=== PATIENT | male | born 1940 ===

== ENCOUNTER 2020-03-30 15:00 | Inpatient (IN) | payer MEDICARE ==
[~2020-03-30 15:00] MED LIST: MICAFUNGIN 100 MG ONE; TERAZOSIN 5 MG CAP ONE
[2020-03-30] MEDS ORDERED: ATORVASTATIN 20 MG TAB ONE (20:17)
[2020-03-30] MEDS ORDERED: SENNA 8.6 MG TAB (SENOKOT) ONE (20:17)
[2020-03-30] MEDS ORDERED: DOCUSATE SODIUM 100 MG CAP ONE (20:17)
[2020-03-30] MEDS ORDERED: traZODone 25MG PER 1/2 TABLET ONE (20:17)
[2020-03-30] MEDS ORDERED: ACETAMINOPHEN 325 MG TAB ONE (20:17)
[2020-03-31] MEDS ORDERED: ENOXAPARIN 40MG/0.4ML SYRINGE (J1650 PER 10MG) ONE (08:11)
[2020-03-31] MEDS ORDERED: DOCUSATE SODIUM 100 MG CAP ONE ×3 (08:11→21:35)
[2020-03-31] MEDS ORDERED: VITAMIN D 1,000 INTERNATIONAL UNITS TABLET ONE (08:11)
[2020-03-31] MEDS ORDERED: ASPIRIN 81 MG CHEW TABLET ONE (08:11)
[2020-03-31] MEDS ORDERED: LACTOBACILLUS ACIDOPHILUS CAP (BACID) ONE ×3 (08:11→21:35)
[2020-03-31] MEDS ORDERED: PANTOPRAZOLE 40MG TAB (PROTONIX) ONE ×2 (08:11→21:35)
[2020-03-31] MEDS ORDERED: NICOTINE 21MG/24HR 1 EA TRANSDERMAL ONE (08:11)
[2020-03-31] MEDS ORDERED: FLUoxetine 10 MG CAP ONE (08:11)
[2020-03-31] MEDS ORDERED: IPRATROPIUM 0.5MG/ALBUTEROL 2.5MG INH SOL UD 3ML (DUONEB) ONE (10:00)
[2020-03-31] MEDS ORDERED: MICAFUNGIN 100 MG ONE (13:00)
[2020-03-31] MEDS ORDERED: ERTAPENEM 1GM VIAL(INVanz) (J1335 PER 500MG) ONE (13:00)
[2020-03-31] MEDS ORDERED: SENNA 8.6 MG TAB (SENOKOT) ONE (21:35)
[2020-03-31] MEDS ORDERED: ATORVASTATIN 20 MG TAB ONE (21:35)
[2020-03-31] MEDS ORDERED: APIXABAN 5 MG TAB (ELIQUIS) ONE (21:35)
[2020-04-01] MEDS ORDERED: PANTOPRAZOLE 40MG TAB (PROTONIX) ONE ×2 (08:29→21:56)
[2020-04-01] MEDS ORDERED: LACTOBACILLUS ACIDOPHILUS CAP (BACID) ONE ×3 (08:29→21:56)
[2020-04-01] MEDS ORDERED: FLUoxetine 10 MG CAP ONE (08:29)
[2020-04-01] MEDS ORDERED: VITAMIN D 1,000 INTERNATIONAL UNITS TABLET ONE (08:29)
[2020-04-01] MEDS ORDERED: DOCUSATE SODIUM 100 MG CAP ONE ×3 (08:29→21:56)
[2020-04-01] MEDS ORDERED: APIXABAN 5 MG TAB (ELIQUIS) ONE ×2 (08:29→21:56)
[2020-04-01] MEDS ORDERED: ASPIRIN 81 MG CHEW TABLET ONE (08:29)
[2020-04-01] MEDS ORDERED: IPRATROPIUM 0.5MG/ALBUTEROL 2.5MG INH SOL UD 3ML (DUONEB) ONE (10:00)
[2020-04-01] MEDS ORDERED: ERTAPENEM 1GM VIAL(INVanz) (J1335 PER 500MG) ONE (13:00)
[2020-04-01] MEDS ORDERED: MICAFUNGIN 100 MG ONE (13:00)
[2020-04-01] MEDS ORDERED: SENNA 8.6 MG TAB (SENOKOT) ONE (21:56)
[2020-04-01] MEDS ORDERED: ATORVASTATIN 20 MG TAB ONE (21:56)
[2020-04-02] MEDS ORDERED: APIXABAN 5 MG TAB (ELIQUIS) ONE ×2 (09:12→20:27)
[2020-04-02] MEDS ORDERED: VITAMIN D 1,000 INTERNATIONAL UNITS TABLET ONE (09:12)
[2020-04-02] MEDS ORDERED: FLUoxetine 10 MG CAP ONE (09:12)
[2020-04-02] MEDS ORDERED: ASPIRIN 81 MG ENTERIC TAB ONE (09:12)
[2020-04-02] MEDS ORDERED: LACTOBACILLUS ACIDOPHILUS CAP (BACID) ONE ×3 (09:12→20:27)
[2020-04-02] MEDS ORDERED: DOCUSATE SODIUM 100 MG CAP ONE ×3 (09:12→20:27)
[2020-04-02] MEDS ORDERED: PANTOPRAZOLE 40MG TAB (PROTONIX) ONE ×2 (09:12→20:27)
[2020-04-02] MEDS ORDERED: IPRATROPIUM 0.5MG/ALBUTEROL 2.5MG INH SOL UD 3ML (DUONEB) ONE (10:00)
[2020-04-02] MEDS ORDERED: ERTAPENEM 1GM VIAL(INVanz) (J1335 PER 500MG) ONE (13:00)
[2020-04-02] MEDS ORDERED: MICAFUNGIN 100 MG ONE (13:00)
[2020-04-02] MEDS ORDERED: ACETAMINOPHEN 325 MG TAB ONE (20:27)
[2020-04-02] MEDS ORDERED: ATORVASTATIN 20 MG TAB ONE (20:27)
[2020-04-02] MEDS ORDERED: SENNA 8.6 MG TAB (SENOKOT) ONE (20:27)
[2020-04-02] MEDS ORDERED: traZODone 25MG PER 1/2 TABLET ONE (20:27)
[2020-04-03] MEDS ORDERED: APIXABAN 5 MG TAB (ELIQUIS) ONE ×2 (09:43→20:20)
[2020-04-03] MEDS ORDERED: FLUoxetine 10 MG CAP ONE (09:43)
[2020-04-03] MEDS ORDERED: ASPIRIN 81 MG CHEW TABLET ONE (09:43)
[2020-04-03] MEDS ORDERED: DOCUSATE SODIUM 100 MG CAP ONE ×3 (09:43→20:20)
[2020-04-03] MEDS ORDERED: PANTOPRAZOLE 40MG TAB (PROTONIX) ONE ×2 (09:43→20:20)
[2020-04-03] MEDS ORDERED: VITAMIN D 1,000 INTERNATIONAL UNITS TABLET ONE (09:43)
[2020-04-03] MEDS ORDERED: LACTOBACILLUS ACIDOPHILUS CAP (BACID) ONE ×3 (09:43→20:20)
[2020-04-03] MEDS ORDERED: IPRATROPIUM 0.5MG/ALBUTEROL 2.5MG INH SOL UD 3ML (DUONEB) ONE (10:00)
[2020-04-03] MEDS ORDERED: traZODone 25MG PER 1/2 TABLET ONE (20:20)
[2020-04-03] MEDS ORDERED: ACETAMINOPHEN TAB 650MG DOSE (2X325MG) ONE (20:20)
[2020-04-03] MEDS ORDERED: ATORVASTATIN 20 MG TAB ONE (20:20)
[2020-04-03] MEDS ORDERED: SENNA 8.6 MG TAB (SENOKOT) ONE (20:20)
[2020-04-04] MEDS ORDERED: MICAFUNGIN 100 MG ONE
[2020-04-04] MEDS ORDERED: LACTOBACILLUS ACIDOPHILUS CAP (BACID) ONE ×3 (06:28→20:41)
[2020-04-04] MEDS ORDERED: ASPIRIN 81 MG ENTERIC TAB ONE (06:28)
[2020-04-04] MEDS ORDERED: VITAMIN D 1,000 INTERNATIONAL UNITS TABLET ONE (06:28)
[2020-04-04] MEDS ORDERED: FLUoxetine 10 MG CAP ONE (06:28)
[2020-04-04] MEDS ORDERED: DOCUSATE SODIUM 100 MG CAP ONE ×3 (06:28→20:41)
[2020-04-04] MEDS ORDERED: PANTOPRAZOLE 40MG TAB (PROTONIX) ONE ×2 (06:28→20:41)
[2020-04-04] MEDS ORDERED: IPRATROPIUM 0.5MG/ALBUTEROL 2.5MG INH SOL UD 3ML (DUONEB) ONE (10:00)
[2020-04-04] MEDS ORDERED: ERTAPENEM 1GM VIAL(INVanz) (J1335 PER 500MG) ONE (12:00)
[2020-04-04] MEDS ORDERED: SENNA 8.6 MG TAB (SENOKOT) ONE (20:41)
[2020-04-04] MEDS ORDERED: ATORVASTATIN 20 MG TAB ONE (20:41)
[2020-04-04] MEDS ORDERED: APIXABAN 5 MG TAB (ELIQUIS) ONE (20:41)
[2020-04-04] MEDS ORDERED: traZODone 25MG PER 1/2 TABLET ONE (20:41)
[2020-04-05] MEDS ORDERED: MICAFUNGIN 100 MG ONE
[2020-04-05] MEDS ORDERED: DOCUSATE SODIUM 100 MG CAP ONE ×3 (08:06→20:49)
[2020-04-05] MEDS ORDERED: ASPIRIN 81 MG ENTERIC TAB ONE (08:06)
[2020-04-05] MEDS ORDERED: LACTOBACILLUS ACIDOPHILUS CAP (BACID) ONE ×3 (08:06→20:49)
[2020-04-05] MEDS ORDERED: APIXABAN 5 MG TAB (ELIQUIS) ONE ×2 (08:06→20:49)
[2020-04-05] MEDS ORDERED: FLUoxetine 10 MG CAP ONE (08:06)
[2020-04-05] MEDS ORDERED: VITAMIN D 1,000 INTERNATIONAL UNITS TABLET ONE (08:06)
[2020-04-05] MEDS ORDERED: PANTOPRAZOLE 40MG TAB (PROTONIX) ONE ×2 (08:06→20:49)
[2020-04-05] MEDS ORDERED: IPRATROPIUM 0.5MG/ALBUTEROL 2.5MG INH SOL UD 3ML (DUONEB) ONE (10:00)
[2020-04-05] MEDS ORDERED: ERTAPENEM 1GM VIAL(INVanz) (J1335 PER 500MG) ONE (12:00)
[2020-04-05] MEDS ORDERED: TERAZOSIN 5 MG CAP ONE (13:00)
[2020-04-05] MEDS ORDERED: SENNA 8.6 MG TAB (SENOKOT) ONE (20:49)
[2020-04-05] MEDS ORDERED: ATORVASTATIN 20 MG TAB ONE (20:49)
[2020-04-06] MEDS ORDERED: ERTAPENEM 1GM VIAL(INVanz) (J1335 PER 500MG) ONE
[2020-04-06] MEDS ORDERED: MICAFUNGIN 100 MG ONE
[2020-04-06] MEDS ORDERED: ASPIRIN 81 MG CHEW TABLET ONE (08:06)
[2020-04-06] MEDS ORDERED: FLUoxetine 10 MG CAP ONE (08:06)
[2020-04-06] MEDS ORDERED: LACTOBACILLUS ACIDOPHILUS CAP (BACID) ONE (08:06)
[2020-04-06] MEDS ORDERED: DOCUSATE SODIUM 100 MG CAP ONE ×2 (08:06→17:13)
[2020-04-06] MEDS ORDERED: VITAMIN D 1,000 INTERNATIONAL UNITS TABLET ONE (08:06)
[2020-04-06] MEDS ORDERED: APIXABAN 5 MG TAB (ELIQUIS) ONE (08:06)
[2020-04-06] MEDS ORDERED: PANTOPRAZOLE 40MG TAB (PROTONIX) ONE (08:06)
[2020-04-06] MEDS ORDERED: ONDANSETRON 4 MG ORAL DISINTEGRATING TAB PO PRN (09:30)
[2020-04-06] MEDS ORDERED: MIRALAX *UNIT DOSE* 17GM PACKET PO PRN (09:30)
[2020-04-06] MEDS ORDERED: GABA-843 PO (09:35)
[2020-04-06] MEDS ORDERED: MELA3TAB49 PO (09:35)
[2020-04-06] MEDS ORDERED: ATOR40TA75 PO (09:35)
[2020-04-06] MEDS ORDERED: PROBCAP14 PO (09:35)
[2020-04-06] MEDS ORDERED: D31000TA2 PO (09:35)
[2020-04-06] MEDS ORDERED: TERA5CAP3 PO (09:35)
[2020-04-06] MEDS ORDERED: PANT-23 PO (09:35)
[2020-04-06] MEDS ORDERED: ASPI81TA26 PO (09:35)
[2020-04-06] MEDS ORDERED: ACET1TAB55 PO (09:35)
[2020-04-06] MEDS ORDERED: IPRATROPIUM 0.5MG/ALBUTEROL 2.5MG INH SOL UD 3ML (DUONEB) ONE (10:00)
[2020-04-06] MEDS: IPRATROPIUM 0.5MG/ALBUTEROL 2.5MG INH SOL UD 3ML (DUONEB) INH SCH (16:00)
[2020-04-06] MEDS: SODIUM CHLORIDE 0.9% INJ 10 ML SYR IV SCH (18:00)
[2020-04-06 20:00] VITALS: BP 134/64
[2020-04-06] MEDS: ATORVASTATIN 20 MG TAB PO SCH (20:58)
[2020-04-06] MEDS: DOCUSATE SODIUM 100 MG CAP PO SCH (20:58)
[2020-04-06] MEDS: PANTOPRAZOLE 40MG TAB (PROTONIX) PO SCH (20:58)
[2020-04-06] MEDS: SENNA 8.6 MG TAB (SENOKOT) PO SCH (20:58)
[2020-04-06] MEDS: APIXABAN 5 MG TAB (ELIQUIS) PO SCH (20:58)
[2020-04-06] MEDS: TERAZOSIN 5 MG CAP PO SCH (20:58)
[2020-04-06] MEDS: LACTOBACILLUS ACIDOPHILUS CAP (BACID) PO SCH (20:58)
[2020-04-06] MEDS: REMEDY PHYTOPLEX Z-GUARD PASTE 113GM TUBE (FROM STOREROOM PRODUCT) TOP SCH (20:58)
[2020-04-07] MEDS: MICAFUNGIN SODIUM 100 MG in D5W MINI-BAG PLUS 100 ML IV SCH (00:27)
[2020-04-07] MEDS: SODIUM CHLORIDE 0.9% INJ 10 ML SYR IV SCH ×2 (01:53→16:28)
[2020-04-07 06:00] VITALS: BP 153/74
[2020-04-07] MEDS: APIXABAN 5 MG TAB (ELIQUIS) PO SCH ×2 (07:41→21:20)
[2020-04-07] MEDS: FLUoxetine 10 MG CAP PO SCH (07:41)
[2020-04-07] MEDS: VITAMIN D 1,000 INTERNATIONAL UNITS TABLET PO SCH (07:41)
[2020-04-07] MEDS: PANTOPRAZOLE 40MG TAB (PROTONIX) PO SCH ×2 (07:41→21:20)
[2020-04-07] MEDS: ASPIRIN 81 MG CHEW TABLET PO SCH (07:41)
[2020-04-07] MEDS: LACTOBACILLUS ACIDOPHILUS CAP (BACID) PO SCH ×3 (07:41→21:20)
[2020-04-07] MEDS: DOCUSATE SODIUM 100 MG CAP PO SCH ×3 (07:42→21:00)
[2020-04-07] MEDS: REMEDY PHYTOPLEX Z-GUARD PASTE 113GM TUBE (FROM STOREROOM PRODUCT) TOP SCH ×3 (07:42→21:21)
[2020-04-07] MEDS: IPRATROPIUM 0.5MG/ALBUTEROL 2.5MG INH SOL UD 3ML (DUONEB) INH SCH ×4 (08:00→19:31)
[2020-04-07] MEDS: ERTAPENEM SODIUM 1 GM in NS MINI-BAG PLUS 50 ML IV SCH (11:05)
[2020-04-07] MEDS: SODIUM CHLORIDE 0.9% INJ 10 ML SYR IV PRN (11:05)
[2020-04-07] MEDS ORDERED: ERTAPENEM 1GM VIAL(INVanz) (J1335 PER 500MG) ONE (12:00)
[2020-04-07] MEDS ORDERED: MICAFUNGIN 100 MG ONE (12:00)
[2020-04-07 14:00] VITALS: BP 138/64
[2020-04-07 20:00] VITALS: BP 136/60
[2020-04-07] MEDS: SENNA 8.6 MG TAB (SENOKOT) PO SCH (21:00)
[2020-04-07] MEDS: ATORVASTATIN 20 MG TAB PO SCH (21:19)
[2020-04-07] MEDS: TERAZOSIN 5 MG CAP PO SCH (21:21)
[2020-04-08] MEDS: MICAFUNGIN SODIUM 100 MG in D5W MINI-BAG PLUS 100 ML IV SCH ×2 (00:54→23:24)
[2020-04-08] MEDS: SODIUM CHLORIDE 0.9% INJ 10 ML SYR IV SCH ×2 (02:23→17:14)
[2020-04-08] MEDS: SODIUM CHLORIDE 0.9% INJ 10 ML SYR IV PRN (02:24)
[2020-04-08 06:00] VITALS: BP 160/69
[2020-04-08] MEDS: IPRATROPIUM 0.5MG/ALBUTEROL 2.5MG INH SOL UD 3ML (DUONEB) INH SCH ×3 (08:26→22:43)
[2020-04-08] MEDS: DOCUSATE SODIUM 100 MG CAP PO SCH ×2 (09:00→16:00)
[2020-04-08 10:14] VITALS: BP 160/69
[2020-04-08] MEDS: APIXABAN 5 MG TAB (ELIQUIS) PO SCH ×2 (10:22→21:04)
[2020-04-08] MEDS: LACTOBACILLUS ACIDOPHILUS CAP (BACID) PO SCH ×3 (10:22→21:04)
[2020-04-08] MEDS: FLUoxetine 10 MG CAP PO SCH (10:22)
[2020-04-08] MEDS: PANTOPRAZOLE 40MG TAB (PROTONIX) PO SCH ×2 (10:22→21:04)
[2020-04-08] MEDS: ASPIRIN 81 MG CHEW TABLET PO SCH (10:23)
[2020-04-08] MEDS: VITAMIN D 1,000 INTERNATIONAL UNITS TABLET PO SCH (10:23)
[2020-04-08] MEDS: REMEDY PHYTOPLEX Z-GUARD PASTE 113GM TUBE (FROM STOREROOM PRODUCT) TOP SCH ×3 (10:23→21:06)
[2020-04-08] MEDS: ERTAPENEM SODIUM 1 GM in NS MINI-BAG PLUS 50 ML IV SCH (12:30)
[2020-04-08] MEDS ORDERED: ELIQ5TAB PO (12:38)
[2020-04-08] MEDS ORDERED: ATOR40TA75 PO (12:38)
[2020-04-08] MEDS ORDERED: TERA5CAP3 PO (12:39)
[2020-04-08] MEDS ORDERED: ASPI81CH8 PO (12:39)
[2020-04-08] MEDS ORDERED: PANT40TA29 PO (12:39)
[2020-04-08] MEDS ORDERED: RISATAB3 PO (12:39)
[2020-04-08] MEDS ORDERED: FLUO10CA16 PO (12:39)
[2020-04-08 13:02] LABS: HEMOGLOBIN 9.7 g/dl (13.5-17.5); MEAN CORPUSCULAR HEMOGLOBIN 31.2 pg (27.0-33.0); MEAN CORPUSCULAR HGB CONC 32.3 g/dl (32.0-36.5); MEAN CORPUSCULAR VOLUME 96.5 fl (80.0-96.0); PLATELET COUNT, AUTOMATED 168 10^3/uL (150-450); RED BLOOD COUNT 3.11 10^6/uL (4.30-6.10); WHITE BLOOD COUNT 4.3 10^3/uL (4.0-10.0)
[2020-04-08 13:03] LABS: ERYTHROCYTE SEDIMENTATION RATE 15 mm/hr (0-20)
[2020-04-08 13:13] LABS: BASO % 0.4 % (0.0-1.0); EOS # 0.1 10^3/uL (0.0-0.5); EOS % 1.5 % (0.0-3.0); HEMATOCRIT 34.2 % (42.0-52.0); LYMPH # 0.9 10^3/uL (1.5-5.0); MEAN CORPUSCULAR HEMOGLOBIN 31.2 pg (27.0-33.0); MEAN CORPUSCULAR HGB CONC 32.2 g/dl (32.0-36.5); MEAN CORPUSCULAR VOLUME 96.9 fl (80.0-96.0); MONO # 0.6 10^3/uL (0.0-0.8); MONO % 8.7 % (0.0-5.0); NEUTROPHILS # 5.1 10^3/uL (1.5-8.5); NEUTROPHILS % 76.1 % (36.0-66.0); PLATELET COUNT, AUTOMATED 170 10^3/uL (150-450); RED BLOOD COUNT 3.53 10^6/uL (4.30-6.10); WHITE BLOOD COUNT 6.7 10^3/uL (4.0-10.0)
[2020-04-08 13:37] LABS: BLOOD UREA NITROGEN 12 MG/DL (7-18); CALCIUM LEVEL 8.3 MG/DL (8.8-10.2); CARBON DIOXIDE LEVEL 29 MEQ/L (21-32); CHLORIDE LEVEL 108 MEQ/L (98-107); CREATININE FOR GFR 0.79 MG/DL (0.70-1.30); GLOMERULAR FILTRATION RATE > 60.0 (>42); GLUCOSE, FASTING 111 MG/DL (70-100); POTASSIUM SERUM 3.5 MEQ/L (3.5-5.1); SODIUM LEVEL 140 MEQ/L (136-145)
[2020-04-08 14:00] VITALS: BP 117/58
[2020-04-08 20:00] VITALS: BP 122/58
[2020-04-08] MEDS: SENNA 8.6 MG TAB (SENOKOT) PO SCH (21:00)
[2020-04-08] MEDS: TERAZOSIN 5 MG CAP PO SCH (21:06)
[2020-04-08] MEDS: ATORVASTATIN 20 MG TAB PO SCH (21:06)
[2020-04-09] MEDS: SODIUM CHLORIDE 0.9% INJ 10 ML SYR IV SCH ×2 (00:50→17:05)
[2020-04-09] MEDS: SODIUM CHLORIDE 0.9% INJ 10 ML SYR IV PRN (00:51)
[2020-04-09 05:35] VITALS: BP 154/70
[2020-04-09] MEDS: IPRATROPIUM 0.5MG/ALBUTEROL 2.5MG INH SOL UD 3ML (DUONEB) INH SCH ×2 (07:41→18:13)
[2020-04-09] MEDS: APIXABAN 5 MG TAB (ELIQUIS) PO SCH ×2 (08:31→20:43)
[2020-04-09] MEDS: VITAMIN D 1,000 INTERNATIONAL UNITS TABLET PO SCH (08:31)
[2020-04-09] MEDS: FLUoxetine 10 MG CAP PO SCH (08:31)
[2020-04-09] MEDS: ASPIRIN 81 MG CHEW TABLET PO SCH (08:31)
[2020-04-09] MEDS: LACTOBACILLUS ACIDOPHILUS CAP (BACID) PO SCH ×3 (08:31→20:43)
[2020-04-09] MEDS: PANTOPRAZOLE 40MG TAB (PROTONIX) PO SCH ×2 (08:31→20:44)
[2020-04-09] MEDS: REMEDY PHYTOPLEX Z-GUARD PASTE 113GM TUBE (FROM STOREROOM PRODUCT) TOP SCH ×3 (08:32→20:44)
[2020-04-09] MEDS: ERTAPENEM SODIUM 1 GM in NS MINI-BAG PLUS 50 ML IV SCH ×2 (12:00→14:01)
[2020-04-09 14:00] VITALS: BP 152/89
[2020-04-09 20:00] VITALS: BP 112/53
[2020-04-09] MEDS: TERAZOSIN 5 MG CAP PO SCH (20:43)
[2020-04-09] MEDS: SENNA 8.6 MG TAB (SENOKOT) PO SCH (20:44)
[2020-04-09] MEDS: ATORVASTATIN 20 MG TAB PO SCH (20:44)
[2020-04-09] MEDS: MICAFUNGIN SODIUM 100 MG in D5W MINI-BAG PLUS 100 ML IV SCH (23:36)
[2020-04-10 05:40] VITALS: BP 144/68
[2020-04-10] MEDS: SODIUM CHLORIDE 0.9% INJ 10 ML SYR IV SCH ×2 (05:45→17:19)
[2020-04-10] MEDS: IPRATROPIUM 0.5MG/ALBUTEROL 2.5MG INH SOL UD 3ML (DUONEB) INH SCH ×3 (06:20→17:54)
[2020-04-10] MEDS: VITAMIN D 1,000 INTERNATIONAL UNITS TABLET PO SCH (08:43)
[2020-04-10] MEDS: PANTOPRAZOLE 40MG TAB (PROTONIX) PO SCH ×2 (08:43→20:53)
[2020-04-10] MEDS: FLUoxetine 10 MG CAP PO SCH (08:43)
[2020-04-10] MEDS: ASPIRIN 81 MG CHEW TABLET PO SCH (08:44)
[2020-04-10] MEDS: LACTOBACILLUS ACIDOPHILUS CAP (BACID) PO SCH ×3 (08:44→20:53)
[2020-04-10] MEDS: REMEDY PHYTOPLEX Z-GUARD PASTE 113GM TUBE (FROM STOREROOM PRODUCT) TOP SCH ×3 (08:44→20:54)
[2020-04-10] MEDS: APIXABAN 5 MG TAB (ELIQUIS) PO SCH ×2 (08:44→20:53)
[2020-04-10] MEDS: ERTAPENEM SODIUM 1 GM in NS MINI-BAG PLUS 50 ML IV SCH (12:06)
[2020-04-10 14:00] VITALS: BP 138/65
[2020-04-10 20:20] VITALS: BP 141/64
[2020-04-10 20:52] VITALS: BP 141/64
[2020-04-10] MEDS: TERAZOSIN 5 MG CAP PO SCH (20:52)
[2020-04-10] MEDS: ATORVASTATIN 20 MG TAB PO SCH (20:53)
[2020-04-10] MEDS: SENNA 8.6 MG TAB (SENOKOT) PO SCH (20:57)
[2020-04-11] MEDS: SODIUM CHLORIDE 0.9% INJ 10 ML SYR IV SCH ×2 (00:22→17:12)
[2020-04-11] MEDS: MICAFUNGIN SODIUM 100 MG in D5W MINI-BAG PLUS 100 ML IV SCH (00:23)
[2020-04-11 05:53] VITALS: BP 145/58
[2020-04-11] MEDS: IPRATROPIUM 0.5MG/ALBUTEROL 2.5MG INH SOL UD 3ML (DUONEB) INH SCH ×3 (07:38→18:06)
[2020-04-11] MEDS: ASPIRIN 81 MG CHEW TABLET PO SCH (08:31)
[2020-04-11] MEDS: LACTOBACILLUS ACIDOPHILUS CAP (BACID) PO SCH ×3 (08:31→19:58)
[2020-04-11] MEDS: FLUoxetine 10 MG CAP PO SCH (08:31)
[2020-04-11] MEDS: VITAMIN D 1,000 INTERNATIONAL UNITS TABLET PO SCH (08:31)
[2020-04-11] MEDS: PANTOPRAZOLE 40MG TAB (PROTONIX) PO SCH ×2 (08:31→19:59)
[2020-04-11] MEDS: APIXABAN 5 MG TAB (ELIQUIS) PO SCH ×2 (08:31→19:59)
[2020-04-11] MEDS: REMEDY PHYTOPLEX Z-GUARD PASTE 113GM TUBE (FROM STOREROOM PRODUCT) TOP SCH ×3 (08:32→20:00)
[2020-04-11] MEDS: ERTAPENEM SODIUM 1 GM in NS MINI-BAG PLUS 50 ML IV SCH (12:07)
[2020-04-11 14:00] VITALS: BP 129/64
[2020-04-11] MEDS: traZODone 25MG PER 1/2 TABLET PO PRN (19:58)
[2020-04-11] MEDS: ACETAMINOPHEN TAB 650MG DOSE (2X325MG) PO PRN (19:58)
[2020-04-11] MEDS: TERAZOSIN 5 MG CAP PO SCH (19:59)
[2020-04-11] MEDS: ATORVASTATIN 20 MG TAB PO SCH (19:59)
[2020-04-11 20:00] VITALS: BP 117/53
[2020-04-11] MEDS: SENNA 8.6 MG TAB (SENOKOT) PO SCH (20:00)
[2020-04-12] MEDS: SODIUM CHLORIDE 0.9% INJ 10 ML SYR IV SCH ×3 (00:12→23:46)
[2020-04-12] MEDS: MICAFUNGIN SODIUM 100 MG in D5W MINI-BAG PLUS 100 ML IV SCH ×2 (00:13→23:44)
[2020-04-12 06:00] VITALS: BP 148/72
[2020-04-12] MEDS: IPRATROPIUM 0.5MG/ALBUTEROL 2.5MG INH SOL UD 3ML (DUONEB) INH SCH ×3 (07:15→18:20)
[2020-04-12] MEDS: VITAMIN D 1,000 INTERNATIONAL UNITS TABLET PO SCH (08:58)
[2020-04-12] MEDS: REMEDY PHYTOPLEX Z-GUARD PASTE 113GM TUBE (FROM STOREROOM PRODUCT) TOP SCH ×3 (08:58→19:56)
[2020-04-12] MEDS: PANTOPRAZOLE 40MG TAB (PROTONIX) PO SCH ×2 (08:58→19:55)
[2020-04-12] MEDS: ASPIRIN 81 MG CHEW TABLET PO SCH (08:58)
[2020-04-12] MEDS: LACTOBACILLUS ACIDOPHILUS CAP (BACID) PO SCH ×3 (08:58→19:55)
[2020-04-12] MEDS: APIXABAN 5 MG TAB (ELIQUIS) PO SCH ×2 (08:58→19:55)
[2020-04-12] MEDS: FLUoxetine 10 MG CAP PO SCH (08:58)
[2020-04-12] MEDS: ERTAPENEM SODIUM 1 GM in NS MINI-BAG PLUS 50 ML IV SCH (11:51)
[2020-04-12] MEDS: SODIUM CHLORIDE 0.9% INJ 10 ML SYR IV PRN (11:52)
[2020-04-12 14:00] VITALS: BP 120/65
[2020-04-12] MEDS: ACETAMINOPHEN TAB 650MG DOSE (2X325MG) PO PRN (19:54)
[2020-04-12] MEDS: SENNA 8.6 MG TAB (SENOKOT) PO SCH (19:55)
[2020-04-12] MEDS: ATORVASTATIN 20 MG TAB PO SCH (19:55)
[2020-04-12] MEDS: TERAZOSIN 5 MG CAP PO SCH (19:55)
[2020-04-12] MEDS: traZODone 25MG PER 1/2 TABLET PO PRN (19:55)
[2020-04-12 20:00] VITALS: BP 140/65
--- NOTE | 2020-04-12 21:34 | IPNPDOC ---
PM&R Progress Note DATE OF SERVICE: Apr 07, 2020 Supervisor/Port Director Progress Note SUBJECTIVE: Patient reporting he is feeling well overall and looking forward to going home on Sunday. ROS- denies fevers, chills, chest pain, nausea/vomiting, diarrhea/constipation, dysuria, difficulty breathing MEDICATIONS: Reviewed, see below. OBJECTIVE: VITAL SIGNS: Please see below. PHYSICAL EXAMINATION: GENERAL:well developed, sitting up in bed, no acute distress HEENT: Normocephalic, atraumatic PERRL, EOMI CARDIOVASCULAR: [S1, S2, rrr, no murmur LUNGS: CTA ABDOMEN: Soft, nontender, nondistended. Normoactive bowel sounds throughout MUSCULOSKELETAL: MMT: 5/5 bilat UE, +right foot drop (otherwise 5/5 bilat LE) NEUROLOGICAL: Alert and oriented times three. 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 Rehab- c/u PT/OT, patient nearing Mod-I however inconsistently with useof AFO and walker, he will at times forget he is hooked up to the wound vac 2. 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 cardiac- c/u daily weights in detting of chronic CHF 4. ID_ c/u Micafungin and Ertepenem per ID recs- afebrile, no leukocytosis 5. Skin- c/u wound vac changes and sacral skin care 6. DVT-patient started on Eliquis for recent finding of Left sided DVT 7. GI ppx- protonix 8. Dispo- 04-09-20 to home with assistance from family Allergies Coded Allergies: No Known Allergies (Unverified , 04/06/20) Vital Signs Vital Signs Date Time Temp Pulse Resp B/P (MAP) Pulse Ox O2 Delivery O2 Flow Rate FiO2 04/12/20 20:00 98.5 62 18 140/65 (90) 97 Room Air Current Medications Current Medications Current Medications Medications (Trade) Dose Ordered Sig/Roddy Route PRN Reason Start Time Stop Time Status Last Admin Dose Admin Acetaminophen (Tylenol Tab) 650 mg Q6HP PRN PO PAIN/FEVER 04/06/20 09:30 04/12/20 19:54 Albuterol/ Ipratropium (Duoneb (Ipr 0.5mg/Alb 2.5mg)) 3 ml RQ8H INH 04/06/20 16:00 04/12/20 18:20 Apixaban (Eliquis) 5 mg BID PO 04/06/20 21:00 04/12/20 19:55 Aspirin (Aspirin Chewable) 81 mg DAILY PO 04/07/20 09:00 04/12/20 08:58 Atorvastatin Calcium (Lipitor) 40 mg QHS PO 04/06/20 21:00 04/12/20 19:55 Docusate Sodium (Colace) 100 mg TID PO 04/06/20 21:00 04/08/20 17:23 DC 04/06/20 20:58 Ertapenem 1 gm/ Sodium Chloride 50 ml @ 100 mls/hr Q24H IV 04/07/20 12:00 04/12/20 11:51 Fluoxetine HCl (PROzac) 10 mg DAILY PO 04/07/20 09:00 04/12/20 08:58 Heparin Sodium (Heparin (Flush)) 200 units ASDIRECTED PRN IV SEE LABEL COMMENTS 04/06/20 09:30 04/12/20 11:52 Heparin Sodium (Heparin (Flush)) 200 units PICC IV 04/06/20 18:00 04/12/20 18:05 Home Med (Med Rec Complete!) ASDIRECTED XX 04/06/20 09:45 04/06/20 09:37 DC Lactobacillus Acidophilus (Bacid) 1 ea TID PO 04/06/20 21:00 04/12/20 19:55 Micafungin Sodium 100 mg/Dextrose 100 ml @ 100 mls/hr Q24H IV 04/07/20 00:00 04/12/20 00:13 Miscellaneous (Unresolved Clarification Entry) SEE LABEL COMMENTS DAILY XX 04/11/20 09:00 04/11/20 10:02 DC Ondansetron HCl (Zofran Odt) 4 mg Q6HP PRN PO NAUSEA 04/06/20 09:30 Pantoprazole Sodium (Protonix) 40 mg BID PO 04/06/20 21:00 04/12/20 19:55 Polyethylene Glycol (Miralax) 1 pkt DAILYPRN PRN PO CONSTIPATION 04/06/20 09:30 Senna (Senokot) 1 tab QHS PO 04/06/20 21:00 04/12/20 19:55 Sodium Chloride (Saline Lock Flush) 10 ml ASDIRECTED PRN IV SEE LABEL COMMENTS 04/06/20 09:30 04/12/20 11:52 Sodium Chloride (Saline Lock Flush) 10 ml PICC IV 04/06/20 18:00 04/12/20 18:04 Terazosin HCl (Hytrin) 5 mg QHS PO 04/06/20 21:00 04/12/20 19:55 Trazodone HCl (Desyrel) 25 mg QHSP PRN PO INSOMNIA 04/06/20 09:30 04/12/20 19:55 Vitamin D (Vitamin D) 1,000 units DAILY PO 04/07/20 09:00 04/12/20 08:58 RICARDO BAIG MD Apr 12, 2020 21:34
[2020-04-13 06:00] VITALS: BP 141/65
[2020-04-13 07:03] LABS: BASO % 0.4 % (0.0-1.0); EOS # 0.3 10^3/uL (0.0-0.5); EOS % 6.5 % (0.0-3.0); HEMATOCRIT 32.9 % (42.0-52.0); HEMOGLOBIN 10.7 g/dl (13.5-17.5); LYMPH % 21.3 % (24.0-44.0); MEAN CORPUSCULAR HEMOGLOBIN 31.6 pg (27.0-33.0); MEAN CORPUSCULAR HGB CONC 32.5 g/dl (32.0-36.5); MEAN CORPUSCULAR VOLUME 97.1 fl (80.0-96.0); MONO # 0.5 10^3/uL (0.0-0.8); MONO % 10.3 % (0.0-5.0); NEUTROPHILS # 2.8 10^3/uL (1.5-8.5); NEUTROPHILS % 61.1 % (36.0-66.0); PLATELET COUNT, AUTOMATED 145 10^3/uL (150-450); RED BLOOD COUNT 3.39 10^6/uL (4.30-6.10); WHITE BLOOD COUNT 4.6 10^3/uL (4.0-10.0)
[2020-04-13] MEDS: IPRATROPIUM 0.5MG/ALBUTEROL 2.5MG INH SOL UD 3ML (DUONEB) INH SCH ×2 (07:12→13:11)
[2020-04-13 08:16] LABS: BLOOD UREA NITROGEN 12 MG/DL (7-18); CALCIUM LEVEL 8.5 MG/DL (8.8-10.2); CARBON DIOXIDE LEVEL 29 MEQ/L (21-32); CHLORIDE LEVEL 108 MEQ/L (98-107); CREATININE FOR GFR 0.78 MG/DL (0.70-1.30); GLOMERULAR FILTRATION RATE > 60.0 (>42); GLUCOSE, FASTING 87 MG/DL (70-100); SODIUM LEVEL 143 MEQ/L (136-145)
[2020-04-13] MEDS: VITAMIN D 1,000 INTERNATIONAL UNITS TABLET PO SCH (09:04)
[2020-04-13] MEDS: LACTOBACILLUS ACIDOPHILUS CAP (BACID) PO SCH (09:04)
[2020-04-13] MEDS: ASPIRIN 81 MG CHEW TABLET PO SCH (09:04)
[2020-04-13] MEDS: APIXABAN 5 MG TAB (ELIQUIS) PO SCH (09:04)
[2020-04-13] MEDS: FLUoxetine 10 MG CAP PO SCH (09:05)
[2020-04-13] MEDS: PANTOPRAZOLE 40MG TAB (PROTONIX) PO SCH (09:05)
[2020-04-13] MEDS: REMEDY PHYTOPLEX Z-GUARD PASTE 113GM TUBE (FROM STOREROOM PRODUCT) TOP SCH (09:05)
--- NOTE | 2020-04-13 11:49 | IPNPDOC ---
PM&R Progress Note DATE OF SERVICE: Apr 08, 2020 Blind Stitch Machine Operator Progress Note SUBJECTIVE: Patient reporting he feels stronger overall and more steady on his feet. ROS- denies fevers, chills, chest pain, nausea/vomiting, diarrhea/constipation, dysuria, difficulty breathing MEDICATIONS: Reviewed, see below. OBJECTIVE: VITAL SIGNS: Please see below. PHYSICAL EXAMINATION: GENERAL:well developed, sitting up in bed, no acute distress HEENT: Normocephalic, atraumatic PERRL, EOMI CARDIOVASCULAR: S1, S2, rrr, no murmur LUNGS: CTA ABDOMEN: Soft, nontender, nondistended. Normoactive bowel sounds throughout MUSCULOSKELETAL: MMT: 5/5 bilat UE, +right foot drop (otherwise 5/5 bilat LE) NEUROLOGICAL: Alert and oriented times three. 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 Rehab- c/u PT/OT, patient nearing Mod-I however inconsistently with useof AFO and walker, he will at times forget he is hooked up to the wound vac 2. 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 cardiac- c/u daily weights in setting of chronic CHF 4. ID_ c/u Micafungin and Ertepenem per ID recs- afebrile, no leukocytosis 5. Skin- c/u wound vac changes and sacral skin care 6. DVT-patient started on Eliquis for recent finding of Left sided DVT 7. GI ppx- protonix 8. Dispo- 04-09-20 to home with assistance from family Allergies Coded Allergies: No Known Allergies (Unverified , 04/06/20) Vital Signs Vital Signs Date Time Temp Pulse Resp B/P (MAP) Pulse Ox O2 Delivery O2 Flow Rate FiO2 04/13/20 06:00 98.6 50 18 141/65 (90) 97 Room Air Laboratory Data CBC/BMP Laboratory Tests 04/13/20 06:30 Labs 24H Laboratory Tests 2 04/13/20 06:30: Immature Granulocyte % (Auto) 0.4, Neutrophils (%) (Auto) 61.1, Lymphocytes (%) (Auto) 21.3L, Monocytes (%) (Auto) 10.3H, Eosinophils (%) (Auto) 6.5H, Basophils (%) (Auto) 0.4, Neutrophils # (Auto) 2.8, Lymphocytes # (Auto) 1.0L, Monocytes # (Auto) 0.5, Eosinophils # (Auto) 0.3, Basophils # (Auto) 0.0, Nucleated Red Blood Cells % (auto) 0.0, Anion Gap 6L, Glomerular Filtration Rate > 60.0, Calcium Level 8.5L Current Medications Current Medications Current Medications Medications (Trade) Dose Ordered Sig/Roddy Route PRN Reason Start Time Stop Time Status Last Admin Dose Admin Acetaminophen (Tylenol Tab) 650 mg Q6HP PRN PO PAIN/FEVER 04/06/20 09:30 04/12/20 19:54 Albuterol/ Ipratropium (Duoneb (Ipr 0.5mg/Alb 2.5mg)) 3 ml RQ8H INH 04/06/20 16:00 04/13/20 07:12 Apixaban (Eliquis) 5 mg BID PO 04/06/20 21:00 04/13/20 09:04 Aspirin (Aspirin Chewable) 81 mg DAILY PO 04/07/20 09:00 04/13/20 09:04 Atorvastatin Calcium (Lipitor) 40 mg QHS PO 04/06/20 21:00 04/12/20 19:55 Docusate Sodium (Colace) 100 mg TID PO 04/06/20 21:00 04/08/20 17:23 DC 04/06/20 20:58 Ertapenem 1 gm/ Sodium Chloride 50 ml @ 100 mls/hr Q24H IV 04/07/20 12:00 04/12/20 11:51 Fluoxetine HCl (PROzac) 10 mg DAILY PO 04/07/20 09:00 04/13/20 09:05 Heparin Sodium (Heparin (Flush)) 200 units ASDIRECTED PRN IV SEE LABEL COMMENTS 04/06/20 09:30 04/12/20 11:52 Heparin Sodium (Heparin (Flush)) 200 units PICC IV 04/06/20 18:00 04/12/20 23:45 Home Med (Med Rec Complete!) ASDIRECTED XX 04/06/20 09:45 04/06/20 09:37 DC Lactobacillus Acidophilus (Bacid) 1 ea TID PO 04/06/20 21:00 04/13/20 09:04 Micafungin Sodium 100 mg/Dextrose 100 ml @ 100 mls/hr Q24H IV 04/07/20 00:00 04/12/20 23:44 Miscellaneous (Unresolved Clarification Entry) SEE LABEL COMMENTS DAILY XX 04/11/20 09:00 04/11/20 10:02 DC Ondansetron HCl (Zofran Odt) 4 mg Q6HP PRN PO NAUSEA 04/06/20 09:30 Pantoprazole Sodium (Protonix) 40 mg BID PO 04/06/20 21:00 04/13/20 09:05 Polyethylene Glycol (Miralax) 1 pkt DAILYPRN PRN PO CONSTIPATION 04/06/20 09:30 Senna (Senokot) 1 tab QHS PO 04/06/20 21:00 04/12/20 19:55 Sodium Chloride (Saline Lock Flush) 10 ml ASDIRECTED PRN IV SEE LABEL COMMENTS 04/06/20 09:30 04/12/20 11:52 Sodium Chloride (Saline Lock Flush) 10 ml PICC IV 04/06/20 18:00 04/12/20 23:46 Terazosin HCl (Hytrin) 5 mg QHS PO 04/06/20 21:00 04/12/20 19:55 Trazodone HCl (Desyrel) 25 mg QHSP PRN PO INSOMNIA 04/06/20 09:30 04/12/20 19:55 Vitamin D (Vitamin D) 1,000 units DAILY PO 04/07/20 09:00 04/13/20 09:04 RICARDO BAIG MD Apr 13, 2020 11:49
[2020-04-13] MEDS: ERTAPENEM SODIUM 1 GM in NS MINI-BAG PLUS 50 ML IV SCH (12:31)
--- NOTE | 2020-04-22 08:58 | CR ---
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 HISTORY OF PRESENT ILLNESS: Mr. Arreola is a 79-year-old gentleman who was admitted to [facility] on 02/09/2020 with bacteremia, culture positive for Veillonella, treated with 2 weeks of IV Zosyn that was discontinued on 02/25/2020. The patient was followed by Dr. Felix Tyson at [facility] Infectious Disease and [facility]. The patient, on 03/10/2020, was admitted again to [facility] with fever, chills, and right lower quadrant pain. He had positive blood cultures with Klebsiella and Streptococcus. CT of the abdomen was suggestive of a femoral vascular graft infection. He had air in the vascular site and a 5.4 x 5.3 cm abscess. On 03/12/2020, he was transferred to [facility], he was in septic shock on Levophed, was on IV meropenem. He has a history of severe peripheral vascular disease and tobacco abuse, had around 7 years ago a femoral graft and aortic bypass done by Dr. Suazo. On 03/15/2020, his aortic graft was repaired and on 03/17/2020 he had removal of the right femoral graft, angioplasty of the right common femoral artery and the sartorius flap. Patient has been on IV antibiotic since then and had a peripherally inserted central catheter (PICC) line placed on 03/22/2020 in his left upper extremity, a wound vacuum assisted closure (VAC), and transferred to [facility] for rehabilitation. He denies any nausea, vomiting, or diarrhea, no fever or chills, no abdominal pain. He has mild pain in the right groin area where the wound VAC is and he has a surgical scar. Otherwise, he feels well, he is getting stronger and would like to go home. He is being visited by his daughter, Radha, who did his IV antibiotics. PAST MEDICAL HISTORY: Peripheral vascular disease status post multiple bypasses, tobacco abuse, history of deep venous thrombosis (DVTs), he had a nonocclusive thrombus in the left distal femoral vein, hypertension, hyperlipidemia, benign prostatic hypertrophy, chronic obstructive pulmonary disease (COPD) on 2 liters nasal cannula, CVA, dementia. PAST SURGICAL HISTORY: Right femoral graft and left aortoiliac bypass graft done 7 years ago at the [facility] ([place]) by Dr. Suazo. REVIEW OF SYSTEMS: No nausea, vomiting, or diarrhea. No headache, no blurry vision. No chest pain, mild shortness of breath at baseline, uses nebulizers. No bowel incontinence or urinary incontinence. He has a history of right foot drop and slightly depressed mood. MEDICATIONS: - Protonix 40 mg by mouth twice a day - Colace 100 mg by mouth three times a day - aspirin 81 mg by mouth daily - Lipitor 40 mg by mouth nightly - Bacid one tablet by mouth three times a day - micafungin 100 mg IV every 24 hours - ertapenem 1 gram IV every 24 hours - terazosin 5 mg by mouth nightly - vitamin D 1000 units daily - DuoNebs 3 mL three times a day - Prozac 10 mg by mouth daily - Senokot one tablet by mouth nightly - Phytoplex paste to the sacrum three times a day ALLERGIES: No known drug allergies. LABORATORY DATA: White count 6.23, hemoglobin 10.3, hematocrit 39.2, platelets 229, 72% neutrophils, 15% lymphocytes, 9% monocytes. PHYSICAL EXAMINATION: Temperature is 98.9, respiratory rate 18, oxygen saturation 99% on room air, blood pressure 138/65, weight 80 kg. Heart: Normal S1, S2, distant. No murmurs, rubs, or gallops. Lungs: Diminished breath sounds at the bases but clear. No wheezes, rales, or rhonchi. Abdomen: Soft, nontender, no hepatosplenomegaly. Midline scar with mehdi about 25 cm, well-healed, mehdi are currently postoperative day #17. Right groin wound VAC in place with open incision measuring about 5 cm x 3 cm, according to nursing. There is bloody drainage in the wound VAC. There is a Klaus-Dutta (CAIN) drain in the right flank area which has minimal bloody discharge. Extremities: +2 ankle edema bilaterally. Skin is dry and flaky. Onychomycoses times ten. No clubbing or cyanosis. Neurologic exam: Alert and oriented times three. Motor strength is normal. Able to get from a sitting to a laying down position without any weakness. Upper and lower extremity strength symmetric. IMPRESSION: This is a 79-year-old gentleman with a history of aortoenteric fistula, infected right femoral graft status post exploratory laparotomy, removal of old femoral graft, angioplasty to right common femoral artery, sartorius flap, and repair of his aortic bypass. Patient had a peripherally inserted central catheter (PICC) line placed in his left upper extremity on 03/22/2020, receiving IV ertapenem and micafungin. PLAN: Continue IV antibiotics for a total of 6 weeks from surgical date. Patient anticipated to be discharged home hopefully next week on 04/06/2020. He will need to continue antibiotics until 04/26/2020. Please arrange IV antibiotics through [facility] and his daughter, Radha, will be able to do the infusions. Monitor weekly labs including complete blood count (CBC), complete metabolic panel (CMP), C-reactive protein (CRP), erythrocyte sedimentation rate (ESR). The patient will followup with Dr. Felix Tyson, infectious disease, in [facility]. CASANDRA
--- NOTE | 2020-05-05 15:19 | PMRDS ---
DATE OF ADMISSION: 03/30/2020 DATE OF DISCHARGE: 04/13/2020 CHIEF COMPLAINT/DISCHARGE DIAGNOSIS: Status post aortic graft infection and repair with right foot drop in the setting of recent stroke. HISTORY OF PRESENT ILLNESS: This is a 79-year-old man with a past medical history of coronary artery disease (CAD), status post stents, peripheral vascular disease (PVD) with recent left [id number] bypass and left to right femoral bypass, chronic diastolic congestive heart failure (CHF), deep venous thromboses (DVTs), hypertension, hyperlipidemia, BPH, chronic obstructive pulmonary disease (COPD), on 2 liters at home, cerebrovascular accident (CVA) with residual right-sided foot drop, dementia, smoker, admitted to [facility] for sepsis and found to have a graft infection with blood cultures positive for klebsiella and streptococcus. Vascular surgery performed a retroperitoneal aortic graft excision with reconstruction and lysis of adhesions with take-down of aortoenteric fistula and duodenal repair on 03/15/2020 with followup exploratory laparotomy on 03/17/2020 for abscess drainage with patch angioplasty and infected aorta removal with sartorius muscle flap. He was placed on a regular diet with supplemental total parenteral nutrition (TPN) and followed closely by infectious disease (ID), who placed him on ertapenem and micafungin for 6 weeks. He was evaluated by therapy and had significant weakness and impairments in mobility and activities of daily living (ADLs) and deemed medically appropriate for discharge to acute rehabilitation unit (ARU) 03/30/2020. PAST MEDICAL HISTORY: As per history of present illness (HPI). HOSPITAL COURSE: Patient was admitted and enrolled in comprehensive physical therapy(PT)/occupational therapy (OT) program. He received 24-hour nursing supervision, and weekly team meetings were held to discuss his progress. Patient had wound vacuum-assisted closure (VAC) changes for his right groin incision and was maintained on micafungin and ertapenem for his aortic graft infection. He was followed closely by infectious disease, who made recommendations for his discharge antibiotic regimen. He was diagnosed with a new DVT on his left lower extremity and started on Eliquis. Per patient, he had had fluctuating level of Coumadin in the past and was discontinued [facility] about 3 [facility] prior [facility] but denied any falls or gastrointestinal (GI) bleeds. He was found to have residual right foot drop from a stroke that he reports he had within the past year, and therapy recommended ankle/foot orthosis (AFO), for which patient declined usage of. He was maintained on aspirin and statin for secondary stroke prevention and started on a selective serotonin reuptake inhibitor (SSRI) for motor recovery. Patient made slow but steady gains in therapy and was deemed medically and functionally stable to return home. DISCHARGE MEDICATIONS: As per instructions. FUNCTIONAL HISTORY OF DISCHARGE: Patient was standby assist to independent for functional transfers, standby assist for ambulation 300 feet with a rolling walker. Thank you for this referral. CASANDRA
[2020-05-23 16:43] LABS: BASO % 0.5 % (0.0-1.0); EOS # 0.1 10^3/uL (0.0-0.5); EOS % 1.6 % (0.0-3.0); HEMATOCRIT 32.2 % (42.0-52.0); HEMOGLOBIN 10.3 g/dl (13.5-17.5); LYMPH % 15.9 % (24.0-44.0); MEAN CORPUSCULAR HEMOGLOBIN 31.1 pg (27.0-33.0); MEAN CORPUSCULAR VOLUME 97.3 fl (80.0-96.0); MONO # 0.6 10^3/uL (0.0-0.8); MONO % 9.1 % (0.0-5.0); NEUTROPHILS # 4.5 10^3/uL (1.5-8.5); NEUTROPHILS % 72.1 % (36.0-66.0); PLATELET COUNT, AUTOMATED 229 10^3/uL (150-450); RED BLOOD COUNT 3.31 10^6/uL (4.30-6.10); WHITE BLOOD COUNT 6.2 10^3/uL (4.0-10.0)
--- NOTE | 2020-05-28 17:48 | IPN ---
DATE: 04/08/2020 Kyle is doing well. He is anxious to get home. He has had no fever or chills. He has refused all his laxatives including Senna and Colace. He is currently on ertapenem 1 gram IV every 24 hours, micafungin 100 mg IV every 24 hours. LABORATORY DATA: White count 6.7, hemoglobin 11, hematocrit 34.2, platelets 170, 76% neutrophils, 8% monocytes. Sodium 140, potassium 3.5, chloride 108, bicarbonate 29, BUN 12, creatinine 0.79, glucose 111, calcium 8.3. On physical exam, temperature is 98.3, pulse 59, respirations 16, blood pressure 117/58, oxygen saturation 98% on room air. Cultures have been reviewed from [facility]. On 03/10/2020, blood cultures were positive for Klebsiella and Streptococcus anginosus. Patient was started on meropenem. 03/15/2020 removal of infected aortic graft with replacement with cadaveric donor aortic graft. Culture from the aortic graft was positive for Cece albicans and Cece glabrata. 03/17/2020 exploratory laparotomy with removal of infected right groin graft and culture was positive for Klebsiella. Repeat fungal and blood cultures were all negative on 03/18/2020. PLAN: To continue IV ertapenem 1 gram every 24 hours and micafungin 100 mg IV every 24 hours for 4 weeks from 03/17/2020 to be completed on 04/15/2020. The patient will continue with weekly labs including complete blood count (CBC), complete metabolic panel (CMP), erythrocyte sedimentation rate (ESR), C-reactive protein (CRP). He will followup with Dr. Alf Tyson, infectious disease at [facility]. Patient is cleared for discharge from an infections disease standpoint. [facility]
--- NOTE | 2020-05-28 17:49 | IPN ---
DATE: 04/05/2020 Kyle seems to be doing very well. His anticipated discharge date is on Sunday. He has no fever or chills. No nausea, vomiting, or diarrhea. No abdominal pain. His wound vacuum-assisted closure (VAC) is being changed today. He has been afebrile. Temperature is 97, pulse 69, oxygen saturation 99% on room air, blood pressure 156/71. HEART: Normal S1, S2. No murmurs. LUNGS: Clear. No wheezes, rales or rhonchi. ABDOMEN: Soft, nontender. No hepatosplenomegaly. Dona from his abdominal wound has been removed. He has Steri-Strips. The wound is completely healed, right groin area. Wound VAC was removed. There is an elliptical-shaped incision with granulation tissue. At 11 o'clock there is undermining about 3.5 cm. At 6 o'clock there is undermining, 1 cm, but there is no purulence. The wound VAC has about 375 mL of serous discharge over the past 72 hours total. LABORATORY DATA: White count 4.31, hemoglobin 9.7, hematocrit 30, platelets 168. Sodium 141, potassium 4, chloride 108, bicarbonate 31, glucose 87, BUN 10, creatinine 0.79. CRP less than 0.3. ESR 15. I have obtained a consuls from infectious disease in [facility], Dr. Gabriel, who recommended 4 weeks of intravenous (IV) antibiotics after infected vascular grafts have been removed. An anticipated discontinuation of antibiotic will be on April 15, a total of 4 weeks after surgery and not 6 weeks. His aortic graft culture had Cece albicans and Cece glabrata. Wound cultures from the abdominal wound had klebsiella. 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 PLAN: Continue with IV Invanz 1 gram daily, micafungin 100 mg IV daily. Patient will finish antibiotics on 04/15/2020, which will be 4 weeks from last surgery. Patient clinically doing well. His inflammatory markers are down to normal, including white count, erythrocyte sedimentation rate (ESR) , and C-reactive protein (CRP). [facility]
== END 2020-04-13 13:50 | disposition home or self-care (01) | DRG 949 ==
LOC: M PM&R 15:00
PROVIDERS: ADMIT Physical Medicine & Rehabilitation; ATTEND Physical Medicine & Rehabilitation
DX: T82.7XXD Infection and inflammatory reaction due to other cardiac and vascular devices, implants and grafts, subsequent encounter (principal); I50.32 Chronic diastolic (congestive) heart failure; I69.351 Hemiplegia and hemiparesis following cerebral infarction affecting right dominant side; I25.10 Atherosclerotic heart disease of native coronary artery without angina pectoris; I73.9 Peripheral vascular disease, unspecified; L89.152 Pressure ulcer of sacral region, stage 2; I11.0 Hypertensive heart disease with heart failure; E78.5 Hyperlipidemia, unspecified; N40.0 Benign prostatic hyperplasia without lower urinary tract symptoms; I69.398 Other sequelae of cerebral infarction; M21.371 Foot drop, right foot; F03.90 Unspecified dementia, unspecified severity, without behavioral disturbance, psychotic disturbance, mood disturbance, and anxiety; Z79.899 Other long term (current) drug therapy; Z79.82 Long term (current) use of aspirin; Z79.01 Long term (current) use of anticoagulants; F32.9 Major depressive disorder, single episode, unspecified; Z87.891 Personal history of nicotine dependence; Z86.718 Personal history of other venous thrombosis and embolism; Z99.81 Dependence on supplemental oxygen; Y83.1 Surgical operation with implant of artificial internal device as the cause of abnormal reaction of the patient, or of later complication, without mention of misadventure at the time of the procedure